=== PATIENT | female | born 1950 | race Hispanic/Latino ===

== ENCOUNTER 2018-06-08 09:39 | Emergency (ER) | payer OTHER ==
[~2018-06-08] VITALS: Ht 152.4 cm; Wt 91.2 kg
--- OUTSIDE RECORDS SUMMARY | 2018-06-08 09:42 | XMS REPORT | Clinical Summary ---
Author Author [facility] Organization [facility] Address Unknown Phone Unavailable Care Team Providers Care Executive Administrative Asst Name Role Phone Yobany Hernández PCP Allergies Comments Active Allergy Reactions Severity Noted Date Skin turn yellow Amoxicillin-Pot Other (See 05/25/2014 Clavulanate Comments) Skin turns yellow Ciprofloxacin Other (See 05/22/2014 Comments) Heads spins Morphine Other (See 05/22/2014 Comments) Medications End Date Status Medication Sig Dispensed Refills Start Date Active metFORMIN (GLUCOPHAGE) Take 500 mg 0 500 MG tablet by mouth daily . Active aspirin 81 MG EC tablet Take 81 mg by 0 mouth daily. Active Problems Problem Noted Date Rectal polyp 01/09/2017 Anal polyp 01/09/2017 Social History Date Tobacco Use Types Packs/Day Years Used Never Smoker Smokeless Tobacco: Never Used Alcohol Use Drinks/Week oz/Week Comments No Sex Assigned at Date Recorded Not on file Industry Job Start Date Occupation Not on file Not on file Not on file Travel End Travel History Travel Start No recent travel history available. Last Filed Vital Signs Not on file Plan of Treatment Not on file Results Not on fileafter 06/07/2017 Insurance Payer Benefit Subscriber ID Type Phone Address Plan / Group MEDICARE MEDICARE A xxxxxxxxxx Medicare B [facility] xxxxxxxxx CARE COMMERCIAL HEALTHCARE INDEMNITY (Home) [place] [address] Advance Directives For more information, please contact: [facility] [address] [place] [address] Date Inactivated Comments Code Status Date Activated 01/09/2017 4:47 PM Full Code 01/09/2017 7:45 AM This code status was determined by: Patient 05/25/2014 1:23 PM Full Code 05/25/2014 9:52 AM This code status was determined by: Patient
--- OUTSIDE RECORDS SUMMARY | 2018-06-08 09:42 | XMS REPORT ---
[facility] Address Unknown Phone Unavailable Care Team Providers Care Air Traffic Control Specialist Center Name Role Phone Padmini TEJEDA SARA Unavailable Unavailable MARCIE OLMSTEAD Unavailable Unavailable ANGELA PAEZ Unavailable Unavailable Problems This patient has no known problems. Allergies, Adverse Reactions, Alerts This patient has no known allergies or adverse reactions. Medications This patient has no known medications. Results Test Description Test Time Test Comments Text Results Atomic Results Result Comments TISSUE EXAM 2017-01-24 11:23:00 Surgical Pathology Report Case: [id number] Authorizing Provider: Jelena Olmstead MD Collected: 01/09/2017 1017 [address] ering Location: [facility] Received: 01/09/2017 1334 SERVICES Pathologist: Robert Rivers MD Specimen: Polyp, Colon - Rectum, Rectal Polyp Addendum is issued to report additional results. The original diagnosis remains the same.Results:An immunostain for syphilis is negative (performed at [facility]). Addendum electronically signed by Robert Rivers MD on 01/24/2017 at 11:23 AMA. POLYP, RECTUM, EXCISION:- POLYPOID RECTAL MUCOSA WITH PROLAPSE-ASSOCIATED CHANGES- SEE COMMENT Signing Pathologist Direct Phone Line: [phone] signed by Robert Rivers MD on 01/17/2017 at 1:18 PMSections show a mucosal prolapse polyp at the ano-rectal junction. Besides typical histological features of prolapse related changes, the lamina propria shows moderate to marked chronic plasma cell-predominant inflammation and there is crypt distortion and focal paneth cell metaplasia. This may represent an unusual and nonspecific histological feature of mucosal prolapse polyp, or could be an additional component of chronic colitis. Clinical correlation is suggested.IDC: Car Pearce M.D.38211Pjzh and rectal polypRectal polypReceived fresh labeled "polyp, colon rectum" are five irregular pink-rosales polypoid fragments of soft tissue measuring 3.0 x 2.5 x 0.5 cm in aggregate. Sectioning reveals no firm areas. The specimen is entirely submitted in cassettes A1-A2. D B/plSection shows polypoid ano-rectal mucosa with ischemic type changes characterized by surface erosion/ulceration with associated active inflammation, congested capillaries, lamina propria hyalinization and extension of muscularis mucosae into lamina propria. The surface crypts show hyperplastic/regenerative changes. In addition, there is expansion of lamina propria by plasma cell predominant inflammation. There is crypt distortion with crypt branching and focal paneth cell metaplasia. No dysplasia or carcinoma is seen. CYTOLOGY 2017-01-19 14:26:00 Medical Cytology Report Case: [id number] Authorizing Provider: iBn Mcgee MD Collected: 01/17/2017 [address] Ord ering Location: [facility] Radiology Main Received: 01/18/2017 0834 Pathologist: Andry Brizuela MD Specimen: Thyroid, Left CHANGE IN DIAGNOSISGENERAL CATEGORY: SUSPICIOUS FOR MALIGANCYTHYROID, LEFT LOBE, FINE NEEDLE ASPIRATION WITH CELL BLOCK: - SUSPICIOUS FOR MALIGNANCY (SEE COMMENT BELOW)This case was inadvertently verified before receipt of the cell block. 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 Histologic prediction is adenomatous nodule.59353, 40893(1.9 X 1.3 X 1.4 cm) Left thyroid nodule LEFT LOBE THYROID GLAND NODULE FNA25 mls in cytorich red; 4 cytospins, cell blockCollected: [id number]: [id number], [facility], [address] [place] [address], [facility], [address] [place] [address], POCT-GLUCOSE METER 2017-01-09 11:06:00 POC-GLUCOSE METER (BEAKER) (test buul=2187) 143 mg/dL 70-110 TESTED AT [facility] [address] [facility] [address] POCT-GLUCOSE [id number] 08:23:00* Test Item Value Reference Range Comments POC-GLUCOSE METER (BEAKER) (test bnvs=3336) 116 mg/dL 70-110 TESTED AT [facility] [address] [facility] [address] [id number] 13:11:00* Test Item Value Reference Range Comments SODIUM (BEAKER) (test wpge=584) 139 meq/L 136-145 POTASSIUM (BEAKER) (test vofg=756) 4.0 meq/L 3.5-5.1 CHLORIDE (BEAKER) (test hpit=685) 107 meq/L 98-107 CO2 (BEAKER) (test tdbv=660) 26 meq/L 22-29 [id number] 13:11:00* Test Item Value Reference Range Comments GLUCOSE RANDOM (BEAKER) (test vywz=836) 110 mg/dL 70-105 Effective 04/14/2014: Reference Range Change-Adult onlyNew: 70-105 Previous: 70-110BUN AND [id number] 13:11:00* Test Item Value Reference Range Comments BLOOD UREA NITROGEN (BEAKER) (test wojb=940) 9 mg/dL 7-21 CREATININE (BEAKER) (test mmna=226) 0.62 mg/dL 0.57-1.25 EGFR (BEAKER) (test cgmq=9222) 95 mL/min/1.73 sq m ESTIMATED GFR IS NOT ACCURATE CREATININE CLEARANCE IN PREDICTING GLOMERULAR FILTRATION RATE. ESTIMATED GFR IS NOT APPLICABLE FOR DIALYSIS PATIENTS. [id number] 12:35:00* Test Item Value Reference Range Comments HEMOGLOBIN (BEAKER) (test uhja=354) 12.5 GM/DL 11.2-15.7 POCT-GLUCOSE [id number] 12:06:00* Test Item Value Reference Range Comments POC-GLUCOSE METER (BEAKER) (test avbq=4286) 98 mg/dL 70-110 TESTED AT [facility] [address] [facility] [address]
--- OUTSIDE RECORDS SUMMARY | 2018-06-08 09:42 | XMS REPORT | Clinical Summary ---
Author Author [facility] Address Unknown Phone Unavailable Care Team Providers Care Unified Communications Engineer Name Role Phone Yobany Hernández MD PCP Allergies Comments Active Allergy Reactions Severity Noted Date Skin turn yellow Amoxicillin-Pot Other (See 05/25/2014 Clavulanate Comments) Dizzy Ciprofloxacin GI 12/02/2010 Intolerance Heads spins Morphine Other (See 05/22/2014 Comments) Medications End Date Status Medication Sig Dispensed Refills Start Date Active metFORMIN (GLUCOPHAGE) 0 500 mg tablet 8 08/17/2017 Discontinued meloxicam (MOBIC) 7.5 mg Take 1 tablet 30 tablet 0 tabletIndications: (7.5 mg 8 Primary osteoarthritis of total) by knees, bilateral mouth daily for 30 days. 10/16/2017 meloxicam (MOBIC) 7.5 mg Take 1 tablet 30 tablet 1 tabletIndications: (7.5 mg 8 Primary osteoarthritis of total) by knees, bilateral mouth daily for 60 days. Active Problems Problem Noted Date Chronic pain of both knees 07/18/2017 Primary osteoarthritis of knees, bilateral 07/18/2017 Obesity (BMI 39.26) 07/18/2017 Encounters Care Team Description Date Type Specialty Bin Roy MD Primary osteoarthritis of knees, bilateral 11/09/2017 Refill Orthopedic Surgery Bin Roy MD Primary osteoarthritis of knees, bilateral 08/17/2017 Orders Only Orthopedic Surgery Bin Roy MD 08/17/2017 Telephone Orthopedic Surgery Lovely Contreras MA 07/20/2017 Telephone Orthopedic Surgery Bin Roy MD Chronic pain of both knees (Primary Dx); Primary osteoarthritis of knees, bilateral; Obesity (BMI 39.26) 07/18/2017 Office Visit Orthopedic Surgery Lovely Contreras MA 07/18/2017 Telephone Orthopedic Surgery after 06/07/2017 Family History Medical History Relation Name Comments Cancer Father Cancer Mother Relation Name Status Comments Father Mother Social History Date Tobacco Use Types Packs/Day Years Used Never Smoker Smokeless Tobacco: Never Used Alcohol Use Drinks/Week oz/Week Comments No Sex Assigned at Date Recorded Not on file Industry Job Start Date Occupation Not on file Not on file Not on file Travel End Travel History Travel Start No recent travel history available. Last Filed Vital Signs Time Taken Vital Sign Reading - Blood Pressure - - Pulse - - Temperature - - Respiratory Rate - - Oxygen Saturation - - Inhaled Oxygen - Concentration 07/18/2017 1:42 PM TRAFFIC INCIDENT MANAGEMENT MANAGER Weight 91.2 kg (201 lb) 07/18/2017 1:42 PM TRAFFIC INCIDENT MANAGEMENT MANAGER Height 152.4 cm (5') 07/18/2017 1:42 PM TRAFFIC INCIDENT MANAGEMENT MANAGER Body Mass Index 39.26 Plan of Treatment Health Maintenance Due Date Last Done Comments BREAST CANCER SCREENING 01/01/1998 COLON CANCER SCREENING 01/01/1998 SHINGLES VACCINES (1 of 01/01/1998 2) PNEUMOCOCCAL 01/01/2013 POLYSACCHARIDE VACCINE AGE 65 AND OVER PNEUMOCOCCAL-13 01/01/2013 INFLUENZA VACCINE 12/26/2017 Procedures Comments Procedure Name Priority Date/Time Associated Diagnosis XR KNEE 4+ VW BILATERAL Routine 07/18/2017 Chronic pain of both 2:00 PM TRAFFIC INCIDENT MANAGEMENT MANAGER knees after 06/07/2017 Results * XR Knee 4+ Vw Bilateral (07/18/2017 2:00 PM TRAFFIC INCIDENT MANAGEMENT MANAGER) Narrative Performed At [facility] PA x-rays on both knees with bilateral lateral x-rays: The left knee has more significant osteoarthritic change with some narrowing of the medial joint compartment. He is not yet bone on bone. Our some reactive subchondral changes and some calcifications out about the medial epicondylar region. The right knee has more minor degrees of joint narrowing Performing Organization Address City/State/Zipcode Phone Number [facility] [address] [place] [address] after 06/07/2017 Insurance Payer Benefit Subscriber ID Type Phone Address Plan / Group [facility] xxxxxxxxx HMO/PPO THCARE CHOICE/CHO ICE + Advance Directives Patient has advance care planning documents on file. For more information, watson mccallum contact: Juan Antonio Tay [address] [place] [address]
--- NOTE | 2018-06-08 10:34 | Diagnostic Imaging Report ---
EXAMINATION: RIBS UNILAT W/CXR- HOPD INDICATION: Fell on floor, right chest wall pain. COMPARISON: None FINDINGS: TUBES and LINES: None. LUNGS: Lungs are well inflated. There is no evidence of pneumonia or pulmonary edema. Mild patchy right basilar opacity, likely atelectasis. PLEURA: No pleural effusion or pneumothorax. HEART AND MEDIASTINUM: The cardiomediastinal silhouette is unremarkable. Atherosclerotic calcifications of the aortic arch. BONES AND SOFT TISSUES: Dedicated views of the right ribs demonstrate no evidence of displaced rib fracture. No acute osseous abnormality. UPPER ABDOMEN: No free air under the diaphragm. IMPRESSION: No acute intrathoracic abnormality. No evidence of displaced rib fracture. Signed by: Dr. Scar Castillo MD on 06/08/2018 10:31 AM
== END 2018-06-08 11:16 | disposition home or self-care (01) ==
LOC: FSED 09:39
DX: S20.211A Contusion of right front wall of thorax, initial encounter (principal); W01.0XXA Fall on same level from slipping, tripping and stumbling without subsequent striking against object, initial encounter; Y92.512 Supermarket, store or market as the place of occurrence of the external cause; E11.9 Type 2 diabetes mellitus without complications
CPT/HCPCS: 71101; 99282

== ENCOUNTER 2018-06-27 13:47 | Emergency (ER) | payer OTHER ==
[~2018-06-27] VITALS: Ht 152.4 cm; Wt 91.2 kg
--- OUTSIDE RECORDS SUMMARY | 2018-06-27 13:51 | XMS REPORT | Continuity of Care Document ---
Author Author [facility] Interface Address Unknown Phone Unavailable Problems Problem Status Onset Date Classification Date Reported Comments Source Medications Medication Details Route Status Patient Instructions Ordering Provider Order Date Source Allergies, Adverse Reactions, Alerts Substance Category Reaction Severity Reaction type Status Date Reported Comments Source clavulanic acid Unknown Allergy to Substance Active 06/08/2018 [facility] Ciprofloxacin Unknown Allergy to Substance Active 06/08/2018 [facility] Amoxicillin Unknown Allergy to Substance Active 06/08/2018 [facility] Immunizations Immunization Date Given Site Status Last Updated Comments Source Results Order Name Results Value Reference Range Date Interpretation Comments Source Vital Signs Vital Sign Value Date Comments Source Encounters Location Location Details Encounter Type Encounter Number Reason For Visit Attending Provider ADM Date DC Date Status Source Departed Emergency Room [id number] HELLEN BRIDGES MD 06/08/2018 06/08/2018 [facility] Procedures Procedure Code Date Perfomer Comments Source
--- OUTSIDE RECORDS SUMMARY | 2018-06-27 13:51 | XMS REPORT | Clinical Summary ---
Author Author [facility] Organization [facility] Address Unknown Phone Unavailable Care Team Providers Care Director Clinical Applications Name Role Phone Yobany Hernández PCP Allergies [...] Not on file Results Not on fileafter 06/26/2017 Insurance Payer Benefit Subscriber ID Type Phone Address Plan / Group MEDICARE MEDICARE A xxxxxxxxxx Medicare B [facility] xxxxxxxxx CARE COMMERCIAL HEALTHCARE INDEMNITY (Home) [place] [address] Advance Directives For more information, please contact: [facility] [address] [place] [address] Date Inactivated Comments Code Status Date Activated 01/09/2017 4:47 PM Full Code 01/09/2017 7:45 AM This code status was determined by: Patient 05/25/2014 1:23 PM Full Code 05/25/2014 9:52 AM This code status was determined by: Patient
--- OUTSIDE RECORDS SUMMARY | 2018-06-27 13:51 | XMS REPORT | Clinical Summary ---
Author Author [facility] Address Unknown Phone Unavailable Care Team Providers Care Solar Installation Manager Name Role Phone Yobany Hernández MD PCP [...] Contreras MA 07/18/2017 Telephone Orthopedic Surgery after 06/26/2017 Family History Medical History Relation Name Comments [...] Inhaled Oxygen - Concentration 07/18/2017 1:42 PM PROMOTIONAL MODEL Weight 91.2 kg (201 lb) 07/18/2017 1:42 PM PROMOTIONAL MODEL Height 152.4 cm (5') 07/18/2017 1:42 PM PROMOTIONAL MODEL Body Mass Index 39.26 Plan of Treatment Health Maintenance Due Date Last Done Comments BREAST CANCER SCREENING 01/01/1998 COLON CANCER SCREENING 01/01/1998 SHINGLES VACCINES (1 of 01/01/1998 2) PNEUMOCOCCAL 01/01/2013 POLYSACCHARIDE VACCINE AGE 65 AND OVER PNEUMOCOCCAL-13 01/01/2013 INFLUENZA VACCINE 12/26/2017 Procedures Comments Procedure Name Priority Date/Time Associated Diagnosis XR KNEE 4+ VW BILATERAL Routine 07/18/2017 Chronic pain of both 2:00 PM PROMOTIONAL MODEL knees after 06/26/2017 Results * XR Knee 4+ Vw Bilateral (07/18/2017 2:00 PM PROMOTIONAL MODEL) Narrative Performed At [facility] [...] Performing Organization Address City/State/Zipcode Phone Number [facility] [address] [place] [address] after 06/26/2017 Insurance Payer Benefit Subscriber ID Type Phone Address Plan / Group [facility] xxxxxxxxx HMO/PPO THCARE CHOICE/CHO ICE + Advance Directives Patient has advance care planning documents on file. For more information, watson mccallum contact: Juan Antonio Tay [address] [place] [address]
--- NOTE | 2018-06-27 14:49 | Diagnostic Imaging Report ---
RIGHT KNEE - 3 Images HISTORY: Fall, pain COMPARISON: None available. FINDINGS: Bones: Diffusely decreased mineralization of the osseous structures limits bone detail. No acute displaced fracture. Incidental 1 cm nonaggressive sclerotic density in the distal femoral diaphysis, compatible with a bone island. Joints: Mild medial compartment predominant tricompartmental degenerative changes. No joint effusion. Soft tissues: The soft tissues appear unremarkable. IMPRESSION: 1. No acute radiographic abnormality. 2. Diffuse osseous demineralization. 3. Mild medial compartment predominant tricompartmental osteoarthrosis. Signed by: Dr. Yao Villa D.O., M.M.M. on 06/27/2018 2:46 PM
--- NOTE | 2018-06-27 15:03 | Diagnostic Imaging Report ---
LEFT KNEE - 3 Images HISTORY: Fall, one month ago COMPARISON: None available. FINDINGS: Bones: Diffusely decreased mineralization of the osseous structures limits bone detail. Age-indeterminate deformity of the lateral tibial plateau. Chronic healed fracture deformity of the proximal fibular metaphysis. Joints: Mild medial compartment predominant tricompartmental degenerative changes. No joint effusion. Soft tissues: Heterotopic ossification in the region of the proximal medial collateral ligament. IMPRESSION: 1. Lateral tibial plateau fracture deformity, likely late subacute to chronic. If there is concern for a subacute injury superimposed upon a chronic fracture deformity, a follow-up MRI of the knee without contrast would provide further characterization. 2. Sequela of remote trauma includes a healed proximal fibular fracture deformity and heterotopic ossification of the medial collateral ligament. 3. Diffuse osseous demineralization. Signed by: Dr. Yao Villa D.O., M.M.M. on 06/27/2018 3:00 PM
[2018-06-27 15:11] VITALS: BP 160/94
== END 2018-06-27 15:00 | disposition home or self-care (01) ==
LOC: FSED 13:47
DX: M25.562 Pain in left knee (principal); M25.561 Pain in right knee; M17.0 Bilateral primary osteoarthritis of knee; W01.0XXA Fall on same level from slipping, tripping and stumbling without subsequent striking against object, initial encounter; Y92.008 Other place in unspecified non-institutional (private) residence as the place of occurrence of the external cause
CPT/HCPCS: 99283